=== PATIENT | female | born 2005 | race Two or more races ===

== ENCOUNTER → 2025-08-15 | Outpatient (CLI) | payer MEDICAID, SELFPAY ==
--- NOTE | 2025-08-15 13:01 | XR_ITS ---
Examination: Scoliosis survey 2, views. Technique: AP standing thoracic, AP standing lumbar spine, two views. Exam date and time: August 15, 2025, 1357 hours INDICATIONS: Upper and lower back pain 2 years. Findings: Upper thoracic levoscoliosis 21 degrees Thoracolumbar dextroscoliosis 13 degrees Lumbar levoscoliosis 7 degrees No fractures or segmentation anomalies IMPRESSION: Scoliosis as above
--- NOTE | 2025-08-15 13:01 | XR_ITS ---
Examination: Abdomen AP single view Technique: AP portable supine abdomen, single view Exam date and time: August 15, 2025, 1357 hours INDICATIONS: Abdominal pain beginning 2 years ago. FINDINGS: Nonobstructive bowel gas pattern. No free air. No renal or ureteral calculi IMPRESSION: Nonobstructive bowel gas pattern
--- NOTE | 2025-08-15 13:01 | XR_ITS ---
Examination: Lumbar spine, 5 views Technique: Lumbar spine AP, lateral, coned lateral lower lumbar spine, bilateral obliques 5 views Exam date and time: August 15, 2025, 1357 hours INDICATIONS: Lower back pain beginning 2 years ago FINDINGS: Lumbar levoscoliosis 7 degrees No significant facet arthropathy No lumbar fracture Mild to moderate disc narrowing posteriorly L5-S1 IMPRESSION: Mild to moderate disc narrowing posteriorly L5-S1
== END | disposition home or self-care (01) ==
LOC: CDIM 12:50
DX: M41.84 Other forms of scoliosis, thoracic region (principal); M41.85 Other forms of scoliosis, thoracolumbar region; M41.86 Other forms of scoliosis, lumbar region; M51.370 Other intervertebral disc degeneration, lumbosacral region with discogenic back pain only; M51.360 Other intervertebral disc degeneration, lumbar region with discogenic back pain only; R10.9 Unspecified abdominal pain
CPT/HCPCS: 72082; 72110; 74018